=== PATIENT | male | born 1995 | race Caucasian/White ===

== ENCOUNTER 2019-08-07 11:27 | Emergency (ER) | payer OTHER ==
[~2019-08-07] VITALS: Ht 180.3 cm; Wt 85.2 kg
[2019-08-07 11:27] VITALS: BP 121/59
--- NOTE | 2019-08-07 12:14 | REP ---
RIGHT FIFTH DIGIT: Four views right 5th digit are performed. There is mild soft tissue swelling. I see no evidence of acute fracture, dislocation or intrinsic bone disease. Electronically Signed by Vincenzo Jeffrey MD 08/08/2019 10:25 P
[2019-08-07] MEDS ORDERED: IBUPROFEN 800 MG TAB PO ONE (12:45)
== END 2019-08-07 12:45 | disposition home or self-care (01) ==
LOC: M ED 11:27
DX: S63.616A Unspecified sprain of right little finger, initial encounter (principal); Y93.62 Activity, american flag or touch football; W23.1XXA Caught, crushed, jammed, or pinched between stationary objects, initial encounter; Y92.89 Other specified places as the place of occurrence of the external cause; Y99.8 Other external cause status; M79.89 Other specified soft tissue disorders

== ENCOUNTER 2019-09-10 14:57 | Emergency (ER) | payer OTHER ==
[~2019-09-10] VITALS: Ht 180.3 cm; Wt 88.1 kg
[2019-09-10 14:58] VITALS: BP 111/61
[2019-09-10] MEDS ORDERED: NAPR-837 PO (15:49)
--- NOTE | 2019-09-11 03:15 | REP ---
HAND: REASON: Recent trauma. FINDINGS: The joint spaces are symmetric and relatively well maintained. There is no evidence of acute fracture or destructive osseous lesion. IMPRESSION: Negative. The lateral view is suboptimal, as the fingers were not . No lateral orientation of the digits was obtained due to this. This limits the exam, particularly when assessing for small digital avulsion fractures. If that is of clinical concern, then I would recommend a repeat exam. Electronically Signed by Davi Matos DO 09/11/2019 11:35 A
--- NOTE | 2019-09-11 13:30 | ED PDOC ---
Post-Departure Follow-Up ft [facility] faxed formal report of right hand film for fu Kristian Godwin MD Sep 11, 2019 13:30
== END 2019-09-10 16:10 | disposition home or self-care (01) ==
LOC: M ED 14:57
DX: S69.91XA Unspecified injury of right wrist, hand and finger(s), initial encounter (principal); X58.XXXA Exposure to other specified factors, initial encounter; Y92.9 Unspecified place or not applicable; Y99.9 Unspecified external cause status; Y93.9 Activity, unspecified

== ENCOUNTER 2020-10-09 20:09 | Emergency (ER) | payer OTHER ==
[~2020-10-09] VITALS: Ht 180.3 cm; Wt 81.8 kg
[~2020-10-09 20:09] MED LIST: NAPR-837 PO
--- NOTE | 2020-10-10 00:11 | REPVR ---
PROCEDURE INFORMATION: Exam: XR Left Tibia and Fibula Exam date and time: 10/09/2020 11:22 PM Age: 25 years old Clinical indication: Pain; Ankle; Left; Additional info: Trauma TECHNIQUE: Imaging protocol: XR Left tibia and fibula. Views: 2 views. COMPARISON: No relevant prior studies available. FINDINGS: Bones/joints: Joint spaces are normal. No fracture or malalignment. Soft tissues: Unremarkable. IMPRESSION: No fracture or malalignment. Electronically signed by: Derek Mart On 10/10/2020 00:10:36 AM
--- NOTE | 2020-10-10 00:13 | REPVR ---
PROCEDURE INFORMATION: Exam: XR Left Ankle Exam date and time: 10/09/2020 11:22 PM Age: 25 years old Clinical indication: Pain; Ankle; Left; Additional info: Trauma TECHNIQUE: Imaging protocol: XR Left ankle. Views: 3 or more views. COMPARISON: No relevant prior studies available. FINDINGS: Bones/joints: Joint spaces are normal. No fracture or malalignment. Soft tissues: Mild soft tissue swelling in the anterolateral ankle. IMPRESSION: 1. No fracture or malalignment. 2. Soft tissue swelling in the lateral ankle. Electronically signed by: Derek Mart On 10/10/2020 00:13:34 AM
[2020-10-10] MEDS ORDERED: MORPHINE 2 MG/ML 1ML VIAL (J2270) IV ONE (00:20)
[2020-10-10] MEDS ORDERED: IBUPROFEN 600MG TAB PO ONE (00:20)
[2020-10-10] MEDS ORDERED: IBUP-1022 PO (00:28)
[2020-10-10 00:41] VITALS: BP 112/68
== END 2020-10-10 00:42 | disposition home or self-care (01) ==
LOC: M ED 23:48
DX: S93.402A Sprain of unspecified ligament of left ankle, initial encounter (principal); X50.9XXA Other and unspecified overexertion or strenuous movements or postures, initial encounter; Y92.310 Basketball court as the place of occurrence of the external cause; Y93.67 Activity, basketball